=== PATIENT | male | born 1975 | race Caucasian/White ===

== ENCOUNTER 2017-02-21 10:00 | Emergency (ER) | payer OTHER ==
[2017-02-21 13:32] LABS: HEMOGLOBIN 13.2 gm/dl (14.0-17.5); RED BLOOD COUNT 4.68 M/UL (4.20-5.50); WHITE BLOOD COUNT 7.9 K/UL (4.5-11.0)
[2017-02-21 13:51] LABS: BUN/CREATININE RATIO 12 (0-10)
== END 2017-02-21 15:00 | disposition home or self-care (01) ==
LOC: ER1 10:00
PROVIDERS: Emergency Medicine
DX: S39.012A Strain of muscle, fascia and tendon of lower back, initial encounter (principal); S16.1XXA Strain of muscle, fascia and tendon at neck level, initial encounter; S29.012A Strain of muscle and tendon of back wall of thorax, initial encounter; S40.012A Contusion of left shoulder, initial encounter; M53.9 Dorsopathy, unspecified; V89.2XXA Person injured in unspecified motor-vehicle accident, traffic, initial encounter; I10 Essential (primary) hypertension; Z88.5 Allergy status to narcotic agent; F17.200 Nicotine dependence, unspecified, uncomplicated; Y93.89 Activity, other specified; Y92.410 Unspecified street and highway as the place of occurrence of the external cause
CPT/HCPCS: 36415; 71010; 72125; 72128; 72131; 73030; 80053; 85025; 96374; 96375; 99284; J2270; J2405

== ENCOUNTER → 2017-03-09 | Outpatient (CLI) | payer OTHER | LOC: KOH-I 10:35 | DX: M89.9 Disorder of bone, unspecified (principal); M50.31 Other cervical disc degeneration, high cervical region; M50.322 Other cervical disc degeneration at C5-C6 level | CPT/HCPCS: 72156; A9577 ==

== ENCOUNTER 2021-07-21 13:36 | Emergency (ER) | payer OTHER, MEDICAID ==
[~2021-07-21 13:36] MED LIST: Voltaren Gel 1 % TOP
[2021-07-21] MEDS ORDERED: NORFLEX 100 MG100 MG PO (16:21)
[2021-07-21] MEDS ORDERED: IBU400 MG PO (16:21)
== END 2021-07-21 16:40 | disposition home or self-care (01) ==
LOC: ER1 13:36
DX: S40.012A Contusion of left shoulder, initial encounter (principal); M25.562 Pain in left knee; M54.5 Low back pain; F17.290 Nicotine dependence, other tobacco product, uncomplicated; V49.40XA Driver injured in collision with unspecified motor vehicles in traffic accident, initial encounter; Y92.410 Unspecified street and highway as the place of occurrence of the external cause
CPT/HCPCS: 70450; 71046; 72125; 72128; 72131; 73030; 73562; 96374; 96375; 99284; J1885; J2360